=== PATIENT | male | born 1980 | race Hispanic/Latino ===

== ENCOUNTER 2019-10-01 13:30 | Inpatient (IN) | payer BC ==
[2019-10-01] VITALS (18 sets, daily range): BP systolic 83–127; BP diastolic 44–84
[~2019-10-01] VITALS: Ht 185.4 cm; Wt 52.9 kg
[2019-10-01] MEDS ORDERED: SODIUM CHLORIDE 0.9% 1000ML 1,000 ML IV STA ×3 (13:45→14:58)
[2019-10-01] MEDS ORDERED: CEFEPIME HCL 1 GM VIAL IV SCH (13:45)
[2019-10-01] MEDS ORDERED: CEFEPIME 1GM/NS 0.9% 50 ML 50 ML IV ONE (14:00)
[2019-10-01] MEDS ORDERED: ONDANSETRON HCL INJ 2MG/ML 2ML 2 MG/ML VIAL ONE (14:10)
[2019-10-01 14:15] LABS: ABG HCO3 2 mmol/L (23-28); ABG PCO2 9 mmHg (41-51); ABG PO2 186 mmHg (80-105)
[2019-10-01 14:27] LABS: BASOPHILS % 0.1 % (0.0-1.0); EOSINOPHILS % 0.1 % (0.0-6.0); HEMATOCRIT 43.1 % (38.2-49.6); HEMOGLOBIN 13.8 g/dL (14.0-18.0); LYMPHOCYTES # (AUTO) 2.8 (1.0-3.2); LYMPHOCYTES % 8.9 % (18.0-39.1); MEAN CORPUSCULAR HEMOGLOBIN 31.2 pg (28-32); MEAN CORPUSCULAR VOLUME 97.3 fL (81-99); MONOCYTES # (AUTO) 1.4 (0.2-0.8); MONOCYTES % 4.4 % (4.4-11.3); NEUTROPHILS # (AUTO) 24.3 (2.1-6.9); NEUTROPHILS % 76.4 % (38.7-80.0); PLATELET COUNT 334 x10e3/uL (140-360); RED BLOOD COUNT 4.43 x10e6/uL (4.3-5.7); RED CELL DISTRIBUTION WIDTH 13.3 % (11.7-14.4)
[2019-10-01 14:52] LABS: ALANINE AMINOTRANSFERASE 14 IU/L (0-55); ALBUMIN 2.5 g/dL (3.5-5.0); ALBUMIN/GLOBULIN RATIO 0.7 (0.8-2.0); ALKALINE PHOSPHATASE 108 IU/L (40-150); BLOOD UREA NITROGEN 61 mg/dL (7-26); BUN/CREATININE RATIO 21 (6-25); CALCIUM 8.4 mg/dL (8.4-10.2); CHLORIDE 82 mmol/L (98-107); CREATININE, SERUM 2.94 mg/dL (0.72-1.25); EST GLOMERULAR FILTRATION RATE 24 ML/MIN (60-); POTASSIUM 4.7 mmol/L (3.5-5.1)
[2019-10-01 14:59] LABS: ANION GAP 32.7 mmol/L (8-16)
[2019-10-01 15:01] LABS: CARBON DIOXIDE < 5 mmol/L (22-29); SODIUM 115 mmol/L (136-145)
[2019-10-01 15:08] LABS: GLUCOSE 902 mg/dL (74-118)
[2019-10-01] MEDS: DEXTROSE 5%/0.45% SOD CHL 1,000 ML IV SCH (15:10)
--- NOTE | 2019-10-01 15:10 | Diagnostic Imaging Report ---
EXAMINATION: CHEST SINGLE (PORTABLE) INDICATION: Sepsis COMPARISON: None FINDINGS: LINES/TUBES:None LUNGS:The lungs are well-inflated. No focal consolidation or pulmonary edema. PLEURA:No pleural effusion or pneumothorax. MEDIASTINUM:The cardiomediastinal silhouette appears normal in size and shape. BONES/SOFT TISSUES:No acute osseous injury. ABDOMEN:No free air under the diaphragm. IMPRESSION: No focal pneumonia or pulmonary edema. Signed by: Lakeshia Vasquez MD on 10/01/2019 3:06 PM
--- NOTE | 2019-10-01 15:13 | Diagnostic Imaging Report ---
Examination: CT BRAIN WO CONTRAST History:Altered mental status. Delirium. Comparison studies:None Technique: Axial images were obtained from the skull base to the vertex. Coronal and sagittal images reconstructed from the axial data. Dose modulation, iterative reconstruction, and/or weight based adjustment of the mA/kV was utilized to reduce the radiation dose to as low as reasonably achievable. Intravenous contrast: None Findings: Scalp: No abnormalities. Bones: No fractures, blastic or lytic lesions. Brain sulci: Appropriate for age. Ventricles: Normal in size and configuration. No hydrocephalus. Extra-axial space: No abnormalities. Parenchyma: No abnormal densities. No masses, hemorrhage, or acute or chronic cortical based vascular insults.. Sellar/suprasellar region: No abnormalities. Craniocervical junction: Patent foramen magnum. No Chiari one malformation. Incidental findings: Mild inflammatory mucosal thickening along the alveolar recess of the left maxillary sinus. Impression: No acute intracranial abnormalities. Signed by: Dr. Kaitlyn Cannon M.D. on 10/01/2019 3:10 PM
[2019-10-01] MEDS: INSULIN REGULAR, HUMAN 3ML VL 100 UNIT in SODIUM CHLORIDE 0.9% 100 ML 100 ML IV SCH ×2 (15:14)
[2019-10-01] MEDS ORDERED: INSULIN REGULAR, HUMAN 3ML VL 100 UNIT in SODIUM CHLORIDE 0.9% 100 ML IV SCH ×4 (15:15→20:15)
[2019-10-01] MEDS ORDERED: MAGNESIUM SULF 1GRAM/DEXTROSE 100 ML IV PRN (15:15)
[2019-10-01 15:27] LABS: BILIRUBIN,URINE NEGATIVE (NEGATIVE); CLARITY,URINE CLEAR (CLEAR); COLOR,URINE YELLOW (YELLOW); LEUKOCYTE ESTERASE ,URINE NEGATIVE (NEGATIVE); NITRITE,URINE NEGATIVE (NEGATIVE); PROTEIN,URINE DIPSTICK TRACE (NEGATIVE); URINE UROBILINOGEN 0.2 mg/dL (0.2 - 1)
[2019-10-01 15:29] LABS: KETONES,URINE 1+ (NEGATIVE)
[2019-10-01 15:32] LABS: AMPHETAMINES SCREEN,URINE NEGATIVE (NEGATIVE); BENZODIAZEPINES SCREEN,URINE NEGATIVE (NEGATIVE); PHENCYCLIDINE SCREEN,URINE NEGATIVE (NEGATIVE)
--- OUTSIDE RECORDS SUMMARY | 2019-10-01 15:37 | XMS REPORT ---
Author Author [facility] Address Unknown Phone Unavailable Care Team Providers Care Assembler Unit Name Role Phone ROXANNE CONRAD Unavailable Unavailable Problems This patient has no known problems. Allergies, Adverse Reactions, Alerts This patient has no known allergies or adverse reactions. Medications This patient has no known medications. Results Test Description Test Time Test Comments Text Results Atomic Results Result Comments CT BRAIN WO 2019-10-01 15:09:00 [place] [address] Patient Name: APRIL KRISHNAMURTHY MR #: [id number] : 1980 Age/Sex: 39/M Req #: [id number] Adm Physician: Ordered by: ROXANNE CONRAD DO Report #: [id number] Location: ER Room/Bed: Procedure: [id number] CT/CT BRAIN WO Exam Date: Exam Time: REPORT STATUS: Signed Examination: CT BRAIN WO CONTRAST History:Altered mental status. Delirium. Comparison studies:None Technique: Axial images were obtained from the skull base to the vertex. Coronal and sagittal images reconstructed from the axial data. Dose modulation, iterative reconstruction, and/or weight based adjustment of the mA/kV was utilized to reduce the radiation dose to as low as reasonably achievable. Intravenous contrast: None Findings: Scal p: No abnormalities. Bones: No fractures, blastic or lytic lesions. Brain sulci: Appropriate for age. Ventricles: Normal in size and configuration. No hydrocephalus. Extra-axial space: No abnormalities. Parenchyma: No abnormal densities. No masses, hemorrhage, or acute or chronic cortical based vascular insults.. Sellar/suprasellar region: No abnormalities. Craniocervical junction: Patent foramen magnum. No Chiari one malformation. Incidental findings: Mild inflammatory mucosal thickening along the alveolar recess of the left maxillary sinus. Impression: No acute intracranial abnormalities. Signed by: Dr. Kaitlyn Cannon M.D. on 10/01/2019 3:10 PM Dictated By: KAITLYN NICHOLS MD 09 Transcribed By: ALJEANDRO on 10/01/191509 COPY TO: ROXANNE CONRAD DO CHEST SINGLE (PORTABLE) 2019-10-01 15:06:00 [place] [address] Patient Name: APRIL KRISHNAMURTHY JR MR #: [id number] : 1980 Age/Sex: 39/M Req #: [id number] Adm Physician: Ordered by: ROXANNE CONRAD DO Report #: [id number] Location: ER Room/Bed: Procedure: [id number] DX/CHEST SINGLE (PORTABLE) Exam Date: 10/01/19 Exam Time: 1400 REPORT STATUS: Signed EXAMINATION: CHEST SINGLE (PORTABLE) IND ICATION: Sepsis COMPARISON: None FINDINGS: LINES/TUBES:None LUNGS:The lungs are well-inflated. No focal consolidation or pulmonary edema. PLEURA:No pleural effusion or pneumothorax. MEDIASTINUM:The cardiomediastinal silhouette appears normal in size and shape. BONES/SOFT TISSUES:No acute osseous injury. ABDOMEN:No free air under the diaphragm. IMPRESSION: No focal pneumonia or pulmonary edema. Signed by: Jose Serrato MD on 10/01/2019 3:06 PM Dictated By: JOSE SERRATO MD 1501 Transcribed By: ALEJANDRO on 10/01/19 2892 COPY TO: ROXANNE CONRAD,
[2019-10-01 15:39] LABS: RBC,URINE 0-5 /HPF (0-5)
[2019-10-01 15:40] LABS: AMORPHOUS SEDIMENT,URINE MODERATE (FEW)
[2019-10-01] MEDS ORDERED: SODIUM BICARBONATE 8.4% 50 ML VIAL IV STA (16:00)
[2019-10-01 16:47] LABS: BLOOD UREA NITROGEN 59 mg/dL (7-26); BUN/CREATININE RATIO 25 (6-25); CHLORIDE 93 mmol/L (98-107); CREATININE, SERUM 2.35 mg/dL (0.72-1.25); EST GLOMERULAR FILTRATION RATE 31 ML/MIN (60-); POTASSIUM 4.1 mmol/L (3.5-5.1); SODIUM 121 mmol/L (136-145)
[2019-10-01 16:49] LABS: ANION GAP 27.1 mmol/L (8-16)
[2019-10-01 16:50] LABS: CARBON DIOXIDE < 5 mmol/L (22-29)
[2019-10-01] MEDS ORDERED: SODIUM BICARBONATE 8.4% SYRING 50 ML ONE (16:50)
[2019-10-01 16:51] LABS: ABG HCO3 2 mmol/L (23-28); ABG PCO2 14 mmHg (41-51); ABG PH 6.83 (7.31-7.41); ABG PO2 109 mmHg (80-105)
[2019-10-01 17:14] LABS: ANISOCYTOSIS SLIGHT; BAND NEUTROPHILS % (MANUAL) 12 %; EOSINOPHILS % (MANUAL) 1 % (0-7); LYMPHOCYTES % (MANUAL) 6 % (19-48); METAMYELOCYTES % (MANUAL) 5 % (0-0); MONOCYTES % (MANUAL) 5 % (3.4-9.0); MYELOCYTES % (MANUAL) 6 % (0-0); NEUTROPHILS % (MANUAL) 65 % (40-74); PLATELET ESTIMATE ADEQUATE; PLATELET MORPHOLOGY COMMENT NORMAL; TOXIC GRANULATION MODERATE
[2019-10-01] MEDS ORDERED: VANCOMYCIN 1GM/NS 250 ML 250 ML IV ONE (17:15)
[2019-10-01 17:21] LABS: POIKILOCYTOSIS SLIGHT
[2019-10-01] MEDS ORDERED: ACETAMINOPHEN 325 MG TAB PO PRN (17:30)
[2019-10-01] MEDS ORDERED: ONDANSETRON HCL INJ 2MG/ML 2ML 2 MG/ML VIAL IV PRN (17:30)
[2019-10-01] MEDS ORDERED: HYDRALAZINE HCL 20 MG/ML VIAL IV PRN (17:30)
[2019-10-01] MEDS: SODIUM CHLORIDE 0.9% 1000ML 1,000 ML IV SCH ×3 (18:16→23:26)
--- NOTE | 2019-10-01 18:22 | Diagnostic Imaging Report ---
Examination: Single AP view of the chest. COMPARISON: None. INDICATION: Line placement DISCUSSION: Lines/tubes: Right-sided IJ catheter with tip over the SVC. Lungs: The lungs are well inflated and clear. No pneumonia or pulmonary edema. Pleura: No pleural effusion or pneumothorax. Heart and mediastinum: The heart and the mediastinum are unremarkable. Bones and soft tissues: No acute bony abnormalities. IMPRESSION: 1. No acute cardiopulmonary abnormalities. Signed by: Dr. Doron Lucas M.D. on 10/01/2019 6:18 PM
[2019-10-01] MEDS: PIPER-TAZ 3.375 GM 50 ML IV SCH (18:23)
[2019-10-01] MEDS ORDERED: INFLUENZA VIRUS VAC SPLIT INJ 0.5 ML SYR IM SCH (18:48)
--- NOTE | 2019-10-01 19:49 | NUR ---
patient admitted to icu at 1600 room 193. pt temp low, bp low. pt slurring with difficulty understanding patient. bg=hi on glucometer time checked. dr. patrick monge at bedside and aware of patient status and plan of care. pt asking pcg to be partner Tyree Early.
[2019-10-01 20:26] LABS: BASOPHILS % 0.1 % (0.0-1.0); HEMATOCRIT 37.3 % (38.2-49.6); HEMOGLOBIN 12.6 g/dL (14.0-18.0); LYMPHOCYTES # (AUTO) 1.2 (1.0-3.2); LYMPHOCYTES % 5.4 % (18.0-39.1); MEAN CORPUSCULAR HEMOGLOBIN 30.7 pg (28-32); MEAN CORPUSCULAR HGB CONC 33.8 g/dL (31-35); MEAN CORPUSCULAR VOLUME 90.8 fL (81-99); MONOCYTES % 4.4 % (4.4-11.3); NEUTROPHILS # (AUTO) 17.8 (2.1-6.9); NEUTROPHILS % 81.3 % (38.7-80.0); PLATELET COUNT 212 x10e3/uL (140-360); RED BLOOD COUNT 4.11 x10e6/uL (4.3-5.7)
[2019-10-01 20:47] LABS: BLOOD UREA NITROGEN 55 mg/dL (7-26); BUN/CREATININE RATIO 27 (6-25); CALCIUM 7.1 mg/dL (8.4-10.2); CHLORIDE 103 mmol/L (98-107); CREATININE, SERUM 2.06 mg/dL (0.72-1.25); EST GLOMERULAR FILTRATION RATE 36 ML/MIN (60-); POTASSIUM 3.3 mmol/L (3.5-5.1); SODIUM 130 mmol/L (136-145)
[2019-10-01 20:50] LABS: ANION GAP 25.3 mmol/L (8-16); CARBON DIOXIDE < 5 mmol/L (22-29)
[2019-10-01 20:51] LABS: GLUCOSE 411 mg/dL (74-118)
--- NOTE | 2019-10-01 20:59 | NUR ---
Spoke with Yolanda (Dr. Owens's answering service) at 2036 regarding new consult. Spoke with Dr. Clinton at 2099 regarding new consult. stated he will see patient tomorrow.
[2019-10-01] MEDS: POTASSIUM CHLORIDE 20MEQ/100ML 100 ML IV PRN (22:06)
--- NOTE | 2019-10-01 23:25 | Consultation ---
DATE OF CONSULTATION: Pulmonary Critical Care Consultation. CHIEF COMPLAINT: Delirium, acidosis and hyperglycemia. REFERRING PHYSICIAN: Brandt Abad MD HISTORY OF PRESENT ILLNESS: The patient is a 39-year-old man. He has a history of HIV. He apparently did have a well controlled CD4 count and viral load. He was on medications but may not have been taking them recently. He also has diabetes and has been on insulin for the past year and a half. Over this past several days, he has not been taking his insulin. He has diarrhea. He has been more confused and agitated. He subsequently came to the ER. Upon arrival, he was found to have a pH of 6.9 with a serum bicarb of 2 and a CO2 of 9. He also had a sodium 115 and anion gap of 33. His glucose was 902. He was given at 3 L of intravenous fluid and started on an insulin drip. He was bell cultured. PAST MEDICAL HISTORY: 1. Diabetes as noted above. 2. HIV. PAST SURGICAL HISTORY: Noncontributory. SOCIAL HISTORY: The patient is not actively drinking or smoking. He has no abdominal pain. He may be using some illicit substances. REVIEW OF SYSTEMS: The patient is afebrile. There is no headache. He has no neck pain. He has no chest pain. He has some dyspnea. He has some diarrhea but no abdominal pain. He has no nausea or vomiting. He does have some diarrhea. PHYSICAL EXAMINATION: VITAL SIGNS: The patient is afebrile. The blood pressure is 91/65 and the pulse is 63. HEENT: Shows no facial swelling or erythema. CARDIAC: Reveals regular rate and rhythm with normal S1, S2. There are no murmurs or rubs heard. LUNGS: Auscultation of lungs reveals clear breath sounds bilaterally. There is no wheezing. ABDOMEN: Soft, nontender. There is no rebound or guarding. EXTREMITIES: Show no leg edema or calf tenderness. There is no cyanosis, clubbing. SKIN: Shows no rashes. NEUROLOGICAL: Shows no focal abnormalities. IMPRESSION: 1. Diabetic ketoacidosis. 2. Leukocytosis and possible infection. 3. Human immunodeficiency virus. 4. Hyponatremia. 5. Hypokalemia. PLAN: 1. The patient will continue to receive intravenous fluid. 2. Continue insulin drip and monitor electrolytes. 3. Bell culture patient. 4. Stool cultures. 5. Antibiotics and infectious Disease consultation. MD JACOB Daniel/ANGELICA /[id number]
[2019-10-02] VITALS (31 sets, daily range): BP systolic 110–137; BP diastolic 69–96
[2019-10-02] MEDS: DEXTROSE 5%/0.45% SOD CHL 1,000 ML IV SCH ×3 (00:10→23:45)
--- NOTE | 2019-10-02 00:25 | Operative Report ---
DATE OF PROCEDURE: SURGEON: Yasir Marcelino MD PREOPERATIVE DIAGNOSES: 1. Central line placement under ultrasound guidance. 2. Hyponatremia. 3. Dehydration. POSTOPERATIVE DIAGNOSES: 1. Central line placement under ultrasound guidance. 2. Hyponatremia. 3. Dehydration. ANESTHESIA: 1% lidocaine for local anesthesia. CONSENT: Consent was obtained from the patient's significant other and the durable power of real estate associate attorney for [facility]. PROCEDURE IN DETAIL: The patient was placed in a supine position. An ultrasound machine was used to locate the right internal jugular vein. His right lateral neck was then prepped sterilely with chlorhexidine. 1% lidocaine was used to anesthetize the area between the heads of the sternocleidomastoid and over the insertion site. A 16-gauge needle was then inserted into the right internal jugular vein under direct visualization. A wire was placed through the needle. A dilator was then used and a triple-lumen catheter was placed over the wire by the Seldinger technique. All the ports flushed. COMPLICATIONS: None. ESTIMATED BLOOD LOSS: None. Yasir Marcelino MD [facility]/MODL /[id number]
[2019-10-02 01:19] LABS: ANION GAP 17.2 mmol/L (8-16); CREATININE, SERUM 1.59 mg/dL (0.72-1.25); POTASSIUM 3.2 mmol/L (3.5-5.1)
[2019-10-02] MEDS: PIPER-TAZ 3.375 GM 50 ML IV SCH ×4 (01:22→17:26)
[2019-10-02] MEDS: SODIUM CHLORIDE 0.9% 1000ML 1,000 ML IV SCH ×6 (01:22→23:10)
[2019-10-02 01:24] LABS: CALCIUM 6.9 mg/dL (8.4-10.2)
--- NOTE | 2019-10-02 01:41 | NUR ---
Notified Dr. Clinton of critical calcium level. said "it is fine" and no new orders received. stated "do not call unless calcium is less than 6."
[2019-10-02] MEDS: POTASSIUM CHLORIDE 20MEQ/100ML 100 ML IV PRN ×3 (01:50→14:45)
[2019-10-02 05:28] LABS: BASOPHILS % 0.1 % (0.0-1.0); HEMATOCRIT 32.4 % (38.2-49.6); HEMOGLOBIN 11.4 g/dL (14.0-18.0); LYMPHOCYTES # (AUTO) 0.6 (1.0-3.2); LYMPHOCYTES % 3.3 % (18.0-39.1); MEAN CORPUSCULAR HEMOGLOBIN 30.5 pg (28-32); MEAN CORPUSCULAR HGB CONC 35.2 g/dL (31-35); MEAN CORPUSCULAR VOLUME 86.6 fL (81-99); MONOCYTES # (AUTO) 1.3 (0.2-0.8); MONOCYTES % 7.3 % (4.4-11.3); NEUTROPHILS # (AUTO) 14.4 (2.1-6.9); NEUTROPHILS % 83.5 % (38.7-80.0); PLATELET COUNT 208 x10e3/uL (140-360); RED BLOOD COUNT 3.74 x10e6/uL (4.3-5.7); RED CELL DISTRIBUTION WIDTH 12.5 % (11.7-14.4)
[2019-10-02 05:47] LABS: ALBUMIN 1.7 g/dL (3.5-5.0); ANION GAP 12.4 mmol/L (8-16); BILIRUBIN,DIRECT 0.1 mg/dL (0.0-0.5); CALCIUM 7.1 mg/dL (8.4-10.2); CREATININE, SERUM 1.49 mg/dL (0.72-1.25); POTASSIUM 3.4 mmol/L (3.5-5.1)
[2019-10-02] MEDS ORDERED: MAGNESIUM SULF 1GRAM/DEXTROSE 100 ML IV ONE (06:30)
[2019-10-02] MEDS ORDERED: CALCIUM GLUCONATE 10% INJ 9.3 MEQ in SODIUM CHLORIDE 0.9% 100 ML 100 ML IV ONE (06:45)
[2019-10-02] MEDS: FAMOTIDINE 20 MG TAB PO SCH ×2 (07:30→17:26)
--- NOTE | 2019-10-02 08:47 | NUR ---
PT LETHARGIC, UNABLE TO DO DPA
[2019-10-02 09:07] LABS: ANION GAP 10.1 mmol/L (8-16); BLOOD UREA NITROGEN 38 mg/dL (7-26); BUN/CREATININE RATIO 29 (6-25); CARBON DIOXIDE 15 mmol/L (22-29); CHLORIDE 110 mmol/L (98-107); EST GLOMERULAR FILTRATION RATE > 60 ML/MIN (60-); GLUCOSE 139 mg/dL (74-118); POTASSIUM 3.1 mmol/L (3.5-5.1); SODIUM 132 mmol/L (136-145)
[2019-10-02 09:14] LABS: MONOCYTES % (MANUAL) 6 % (3.4-9.0); PLATELET ESTIMATE ADEQUATE; PLATELET MORPHOLOGY COMMENT NORMAL; RBC MORPHOLOGY COMMENT NORMAL
[2019-10-02 09:15] LABS: LYMPHOCYTES % (MANUAL) 3 % (19-48); NEUTROPHILS % (MANUAL) 91 % (40-74)
--- NOTE | 2019-10-02 09:41 | NUR ---
NOTIFIED MD REGARDING PHOS LEVEL, NEW ORDERS RECEIVED AND ENTERED
[2019-10-02] MEDS ORDERED: POTASSIUM PHOSPHATE 30 MM in SODIUM CHLORIDE 0.9% 250ML 250 ML IV ONE (09:45)
--- NOTE | 2019-10-02 11:37 | NUR ---
Nutrition Intervention Note RD Recommendation(s) for Physician: Advance diet as tolerated to a regular diet to promote Po intake Plan of Care: RD following, monitoring for tolerance and adequacy Nutrition reason for involvement: Nutrition Risk Trigger - BMI 15.5 RD Assessment 10/02 Initial encounter with patient and partner. Pt was only able to provide a limited nutrition Hx; partner gave most of the nutrition Hx. Diet: Hx: Pt is lactose intolerant. No known food allergies. 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 Pt is able to cook and feed himself, but just does not feel like preparing anything to eat. Pt usually eats sporadically and prepares canned foods like ravioli or bologna sandwiches. Pt has commercial beverages at home, but has limited acceptance of them and refuses to drink them. Pt is more sedentary and has not been ambulating as much. Pt states that he's non- compliant with HIV meds or insulin. Fourteen years ago pt weighed 190# and within the last 2 years had a UBW of 155 pounds. Physical activity and function: Pt is able to feed himself. Pt is sedentary at this time. Nutrition - focused physical findings: Pt is dentate, Denies any difficulty chewing or swallowing, nor has any N,V or D. Involuntary wt loss, loss of lean body mass, loss of functional mobility,prominent clavicle, acromion process, ribs, some temporal wasting. Pt was too tired to continue with nutrition - focused physical exam. Central Line has been placed Principal Problems/Diagnoses: AIDS, DKA PMH: HIV, T2DM GI:soft nontender Skin:intact skin Labs: (10/02/2019) Na 132, K 3.1, Cl 110, Bun/Cr 38/1.38, glucose 139 Meds: (10/02/19) MAR reviewed and Pt on an insulin drip, IV fluids KCL/D5 1/2 NS Ht: 73in. Wt:117.38lbs BMI:15.5kg/M2 IBW:lbs Malnutrition Evaluation (10/02/2019) T The patient meets criteria for unspecified SEVERE protein-calorie malnutrition. Energy intake: <50% of estimated energy requirements for >1 month Weight loss: >10% in 6 months (Chronic) Fat loss: Severe Muscle loss: Severe Supporting Evidence: Fluid accumulation:none Functional Status measurably reduced Nutrition Prescription (Diet Order): Clear liquid diet Estimated Nutritional Needs: 1600 - 1867calories/day ( 30-35kcal/kg/BW 53-106g protein/day ( 1-2g pro/kg/BW Diet Adequacy: Meeting fluid needs, Not meeting calorie needs, Not meeting protein needs Diet Education Needs Assessment: Diet education not indicated, patient on temporary/transition diet. Nutrition Care Level: High Nutrition Diagnosis: Malnutrition related to chronic illness as evidenced by loss of lean body mass and loss of subcutaneous fat. Goal: Patient will meet 75-100% of estimated needs by follow up Progress: Not Progressing Interventions: modified diet,Composition, Rate, Route, IVF, Prescription medications Monitoring/Evaluation: Total energy intake, Total protein intake, IVF, Prescription medication, Modified diet, Weight change goals Signed: Jovi Alvarado RD, HERMELINDA, [facility] Addendum: 10/02/19 at 1242 by Jovi LANIER IBW: 184lbs
[2019-10-02] MEDS ORDERED: CHOLESTYRAMINE 4 GM PACKET PO NR (12:00)
--- NOTE | 2019-10-02 12:30 | NUR ---
informed dr monge, blood sugar 78, orders received to decrease insulin drip to 4 units/hr
[2019-10-02 12:57] LABS: ANION GAP 10.4 mmol/L (8-16); BLOOD UREA NITROGEN 32 mg/dL (7-26); BUN/CREATININE RATIO 29 (6-25); CARBON DIOXIDE 15 mmol/L (22-29); CHLORIDE 110 mmol/L (98-107); CREATININE, SERUM 1.09 mg/dL (0.72-1.25); EST GLOMERULAR FILTRATION RATE > 60 ML/MIN (60-); GLUCOSE 80 mg/dL (74-118); MAGNESIUM 1.9 MG/DL (1.3-2.1); POTASSIUM 3.4 mmol/L (3.5-5.1); SODIUM 132 mmol/L (136-145)
[2019-10-02 13:04] LABS: CALCIUM 6.9 mg/dL (8.4-10.2)
--- NOTE | 2019-10-02 14:18 | Progress Note ---
DATE: Pulmonary Critical Care Progress Note SUBJECTIVE: The patient has been on IV fluids and insulin drip overnight. He is more awake. His electrolytes have improved as his blood sugar. He still has some abdominal pain and some diarrhea. PHYSICAL EXAMINATION: VITAL SIGNS: The patient is afebrile. The blood pressure is 135/82 and the saturation is 99%. The pulse is 81. HEENT: Shows no facial swelling or erythema. CARDIAC: Reveals regular rate and rhythm with normal S1 and S2. There are no murmurs or rubs heard. LUNGS: Auscultation of lungs shows clear breath sounds bilaterally. There is no wheezing. ABDOMEN: Soft, nontender. There is no rebound or guarding. EXTREMITIES: There is no leg edema. IMPRESSION: 1. Diabetic ketoacidosis. 2. Leukocytosis. 3. Human immunodeficiency virus. 4. Hyponatremia. 5. Hypokalemia. PLAN: 1. Continue to monitor electrolytes. 2. Continue IV fluids along with insulin drip. 3. Restart anti-retroviral medications. 4. Abdominal pelvic CT scan scheduled. Yasir Marcelino MD [facility]/MODL /[id number]
--- NOTE | 2019-10-02 14:18 | Consultation ---
DATE OF CONSULTATION: 10/02/2019 Renal Consultation REASON FOR CONSULTATION: Acute kidney injury and acidosis. HISTORY OF PRESENT ILLNESS: A 39-year-old male with a history of diabetes and hypertension, who was brought to [facility] for altered mental status. The patient is a poor historian and lethargic, and history is taken from him as well as medical record. The patient apparently has developed some diarrhea and was not taking his insulin or his HIV medications. He became more confused, agitated, and was brought by his partner to the emergency room. The patient was found to have severe metabolic acidosis, blood glucose of 902, was started on insulin drip, IV fluids for DKA, and Nephrology consultation was called. REVIEW OF SYSTEMS: Unable to obtain, as the patient is lethargic. PAST MEDICAL HISTORY: 1. Diabetes. 2. HIV. PAST SURGICAL HISTORY: None. SOCIAL HISTORY: No tobacco. No alcohol. Questionable use of recreational drugs. FAMILY HISTORY: No family history of kidney disease, although not reliable. ALLERGIES: NO KNOWN DRUG ALLERGIES. CURRENT MEDICATIONS: See list includes Zosyn, D5 half NS at 100, and insulin drip. PHYSICAL EXAMINATION: VITAL SIGNS: Blood pressure 131/73, pulse 78, respiratory rate 16, and temperature 98.7. GENERAL: No apparent distress. Ill-appearing. HEENT: Oropharynx clear with dry mucosa. Temporal wasting. No scleral icterus. NECK: Supple. No elevation in jugular venous pressure. Right IJ catheter in place. CHEST: Decreased breath sounds at bases anteriorly bilaterally. CARDIOVASCULAR: Regular rhythm. No murmurs or rubs. ABDOMEN: Soft. Positive bowel sounds. No tenderness. No rebound. EXTREMITIES: No edema. No clubbing. No cyanosis. SKIN: Warm. LABORATORY DATA: White count 17.19, hemoglobin 9.4, hematocrit 32.4, and platelets 208. Sodium 130, was 115 when he came in, potassium 3.4, chloride 107, CO2 14, anion gap 12.4, BUN 44, creatinine 1.49, was 2.94 on admission, glucose 166, calcium 7.1, and albumin 1.7. Urine clear, moderate amorphous sediment. No wbc's. Urine tox screen negative. ABG on admission was pH 6.9 with pCO2 of 9, and a bicarb of 2. ASSESSMENT AND PLAN: 1. Acute kidney injury secondary to volume depletion due to diabetic ketoacidosis. Continue with aggressive IV fluids. Kidney function is improving. 2. Hyponatremia secondary to hyperglycemia. His initial sodium of 115, corrected for glucose of 902 was 128. Continue with current fluids. 3. Anion gap acidosis secondary to diabetic ketoacidosis. Continue with diabetic ketoacidosis protocol. 4. Hypokalemia, correct per protocol. 5. Hypocalcemia, normal when corrected for low albumin. 6. Human immunodeficiency virus. We will need to resume his medications. 7. Hypermagnesemia, improving with IV fluids due to acute kidney injury. 8. Leukocytosis. Continue antibiotics with cultures pending. MD RASHEL Luong/MODL /[id number]
[2019-10-02] MEDS: INSULIN REGULAR, HUMAN 3ML VL 100 UNIT in SODIUM CHLORIDE 0.9% 100 ML 100 ML IV SCH ×2 (15:13)
--- NOTE | 2019-10-02 17:34 | Consultation ---
DATE OF CONSULTATION: REASON FOR CONSULTATION: AIDS, HIV, abdominal pain. HISTORY OF PRESENT ILLNESS: This patient, who is a 39-year-old male with history of HIV for several years. Apparently, he does take his medication. He tells me he was never diagnosed with AIDS, but he has been diagnosed with HIV. He has come in with 8 days of abdominal pain, not feeling well, fever, chills. He came to emergency room. In the emergency room, he had a pH of 6.9, bicarb of 2, CO2 of 9, sodium 115, anion gap 33, glucose 902. He was started on IV fluids and started on insulin drip. The patient was admitted. He is complaining of abdominal pain and not feeling well in general. Since he came here his white count was 31,000 came down to 17.1, hemoglobin was 13, came down to 11. Platelet of 208. The differential shows 65% neutrophils, went up to 91, lymphocyte was 6. His sodium is 132 today, potassium 3.1, creatinine 1.30. His liver enzyme; AST 14, ALT of 9. His blood cultures still pending. His urine culture is still pending. MEDICATIONS: He is currently on Zosyn, potassium supplement, magnesium supplement, Pepcid. The patient had a chest x-ray, showed no focal pneumonia. PHYSICAL EXAMINATION: GENERAL: He is currently alert, oriented, does not seem to be in acute distress with vital stable. VITAL SIGNS: Temperature 98.7, heart rate of 78, respiration 15. The patient had no fever since admission. HEENT: Normocephalic, not icteric. NECK: Supple. No JVD. No lymphadenopathy. No thyromegaly. CHEST: Clear bilateral. HEART: S1, S2. No S3, S4, or murmur. ABDOMEN: Soft. He had diffuse discomfort. EXTREMITIES: No edema. SKIN: No rash. IMPRESSION: 1. Sepsis on admission, source unclear, concerned about intraabdominal process. 2. Human immunodeficiency virus. Continue his medication once he is stable. 3. Nausea, vomiting, abdominal pain. We will get a CT of abdomen and pelvis and get amylase, lipase. Agree with IV fluid. 4. Diabetic ketoacidosis could explain the problem, concerned about underlying history of sepsis or infection. 5. Hyperlipidemia, hypokalemia. 6. Continue with supportive care. We will follow with you. Thank you for asking me to see this patient. MD DELANEY Malik/MODJacobo /[id number]
[2019-10-02] MEDS ORDERED: SODIUM CHLORIDE 0.9% 50ML 50 ML ONE (17:36)
[2019-10-02] MEDS ORDERED: IOPAMIDOL 370 MG/ML 200 ML INFUS..BTL INJ ONE (17:36)
[2019-10-02] MEDS ORDERED: LIPITOR20 MG PO (17:45)
--- NOTE | 2019-10-02 17:47 | Diagnostic Imaging Report ---
EXAM: CT Abdomen and Pelvis WITH contrast INDICATION: Abdominal pain. Leukocytosis. Diarrhea. COMPARISON: None. TECHNIQUE: Abdomen and pelvis were scanned utilizing a multidetector helical scanner from the lung base to the pubic symphysis after administration of IV contrast. Coronal and sagittal reformations were obtained. Routine protocol was performed. Scan was performed when during portal venous phase. IV CONTRAST: 100 cc Isovue-300 ORAL CONTRAST: Water RADIATION DOSE: Total DLP: 212.30 mGy*cm Estimated effective dose: (DLP x 0.015 x size factor) mSv COMPLICATIONS: None FINDINGS: LINES and TUBES: None. LOWER THORAX: Unremarkable HEPATOBILIARY: No focal hepatic lesions. No biliary ductal dilation. GALLBLADDER: No radio-opaque stones or sludge. No wall thickening. SPLEEN: No splenomegaly. PANCREAS: No focal masses or ductal dilatation. ADRENALS: No adrenal nodules KIDNEYS/URETERS: Kidneys enhance symmetrically. No hydronephrosis. No cystic or solid mass lesions. No stones. GI TRACT: Evaluation limited due to the lack of contrast. There is diffuse mild nodular wall thickening of the colon and rectum, associated mild fat stranding suggestive of pancolitis. No abnormal distention, wall thickening, or evidence of bowel obstruction. Appendix is normal. PELVIC ORGANS/BLADDER: Keyes catheter within the urinary bladder which also contains a moderate volume of gas. Mild diffuse wall thickening of the urinary bladder. LYMPH NODES: No lymphadenopathy. VESSELS: Unremarkable. PERITONEUM / RETROPERITONEUM: No free air or fluid. BONES: Unremarkable. SOFT TISSUES: Unremarkable. IMPRESSION: 1. Mild pancolitis, either infectious or inflammatory in etiology. Pseudomembranous colitis within the differential diagnosis. 2. Mild diffuse wall thickening of the urinary bladder may be related to underdistention, however, correlate for mild cystitis. Signed by: Dr. Yaniv Maza M.D. on 10/02/2019 5:44 PM
[2019-10-02 17:52] LABS: BLOOD UREA NITROGEN 25 mg/dL (7-26); BUN/CREATININE RATIO 27 (6-25); CARBON DIOXIDE 15 mmol/L (22-29); CHLORIDE 109 mmol/L (98-107); CREATININE, SERUM 0.94 mg/dL (0.72-1.25); EST GLOMERULAR FILTRATION RATE > 60 ML/MIN (60-); GLUCOSE 110 mg/dL (74-118); SODIUM 130 mmol/L (136-145)
[2019-10-02 18:30] LABS: CALCIUM 6.5 mg/dL (8.4-10.2)
[2019-10-02] MEDS: POTASSIUM CHLORIDE 20MEQ/100ML 200 ML IV PRN (18:38)
[2019-10-02 21:32] LABS: ANION GAP 9.2 mmol/L (8-16); BLOOD UREA NITROGEN 22 mg/dL (7-26); BUN/CREATININE RATIO 24 (6-25); CARBON DIOXIDE 16 mmol/L (22-29); CHLORIDE 112 mmol/L (98-107); CREATININE, SERUM 0.93 mg/dL (0.72-1.25); EST GLOMERULAR FILTRATION RATE > 60 ML/MIN (60-); GLUCOSE 79 mg/dL (74-118); POTASSIUM 3.2 mmol/L (3.5-5.1); SODIUM 134 mmol/L (136-145)
[2019-10-02 22:01] LABS: CALCIUM 6.8 mg/dL (8.4-10.2)
[2019-10-03] VITALS (24 sets, daily range): BP systolic 104–139; BP diastolic 60–95
[2019-10-03] MEDS: PIPER-TAZ 3.375 GM 50 ML IV SCH ×2 (00:35→06:30)
[2019-10-03 01:16] LABS: ANION GAP 10.9 mmol/L (8-16); BLOOD UREA NITROGEN 18 mg/dL (7-26); BUN/CREATININE RATIO 21 (6-25); CARBON DIOXIDE 16 mmol/L (22-29); CHLORIDE 110 mmol/L (98-107); CREATININE, SERUM 0.87 mg/dL (0.72-1.25); EST GLOMERULAR FILTRATION RATE > 60 ML/MIN (60-); GLUCOSE 83 mg/dL (74-118); MAGNESIUM 1.8 MG/DL (1.3-2.1); SODIUM 134 mmol/L (136-145)
[2019-10-03 01:26] LABS: POTASSIUM 2.9 mmol/L (3.5-5.1)
[2019-10-03 01:27] LABS: CALCIUM 6.7 mg/dL (8.4-10.2)
[2019-10-03] MEDS: POTASSIUM CHLORIDE 20MEQ/100ML 200 ML IV PRN ×2 (01:28→06:30)
[2019-10-03] MEDS: INSULIN REGULAR, HUMAN 3ML VL 100 UNIT in SODIUM CHLORIDE 0.9% 100 ML 100 ML IV SCH ×4 (01:43→06:30)
[2019-10-03 02:55] LABS: AMYLASE 60 U/L (25-125); LIPASE 66 U/L (8-78)
[2019-10-03 05:37] LABS: BASOPHILS % 0.3 % (0.0-1.0); EOSINOPHILS % 0.1 % (0.0-6.0); HEMATOCRIT 26.8 % (38.2-49.6); HEMOGLOBIN 9.7 g/dL (14.0-18.0); LYMPHOCYTES # (AUTO) 2.1 (1.0-3.2); LYMPHOCYTES % 19.2 % (18.0-39.1); MEAN CORPUSCULAR HEMOGLOBIN 30.5 pg (28-32); MEAN CORPUSCULAR HGB CONC 36.2 g/dL (31-35); MEAN CORPUSCULAR VOLUME 84.3 fL (81-99); MONOCYTES # (AUTO) 0.9 (0.2-0.8); MONOCYTES % 8.1 % (4.4-11.3); NEUTROPHILS # (AUTO) 7.3 (2.1-6.9); PLATELET COUNT 149 x10e3/uL (140-360); RED BLOOD COUNT 3.18 x10e6/uL (4.3-5.7); RED CELL DISTRIBUTION WIDTH 12.5 % (11.7-14.4)
[2019-10-03 05:55] LABS: BLOOD UREA NITROGEN 16 mg/dL (7-26); BUN/CREATININE RATIO 19 (6-25); CARBON DIOXIDE 17 mmol/L (22-29); CHLORIDE 110 mmol/L (98-107); CREATININE, SERUM 0.86 mg/dL (0.72-1.25); EST GLOMERULAR FILTRATION RATE > 60 ML/MIN (60-); GLUCOSE 67 mg/dL (74-118); MAGNESIUM 1.8 MG/DL (1.3-2.1); SODIUM 133 mmol/L (136-145)
[2019-10-03 05:58] LABS: PHOSPHORUS < 0.7 MG/DL (2.3-4.7)
[2019-10-03 06:01] LABS: CALCIUM 6.7 mg/dL (8.4-10.2)
--- NOTE | 2019-10-03 06:11 | NUR ---
Spoke with Christian NEAL regarding blood sugars in the 80s for most of the night in spite of increasing IVF per DKA protocol. Blood sugar now 67. Christian NEAL ordered to decrease insulin gtt to 2 un/hr and increase IVF an additional 25 mL/hr. Christian NEAL OK'd jaime d/c per pt request.
[2019-10-03] MEDS ORDERED: POTASSIUM CHLORIDE 20 MEQ TAB CR PO STA (06:43)
[2019-10-03 06:47] LABS: CALCIUM IONIZED 1.1 mmol/L (1.09-1.30)
[2019-10-03] MEDS ORDERED: CHOLESTYRAMINE 4 GM PACKET PO PRN (07:00)
[2019-10-03 07:17] LABS: LYMPHOCYTES % (MANUAL) 21 % (19-48); MONOCYTES % (MANUAL) 9 % (3.4-9.0); NEUTROPHILS % (MANUAL) 70 % (40-74)
[2019-10-03 07:20] LABS: HYPOCHROMASIA SLIG; PLATELET ESTIMATE SLIGHTLY DECREASED; POLYCHROMASIA FEW; RBC MORPHOLOGY COMMENT NORMAL
--- NOTE | 2019-10-03 07:27 | NUR ---
Yudy Patel BUSINESS MANAGEMENT SPECIALIST notified of low blood sugars and current insulin gtt/IVF rates. BUSINESS MANAGEMENT SPECIALIST states it is okay to continue with until protocol indicates d/c of drip.
[2019-10-03] MEDS: FAMOTIDINE 20 MG TAB PO SCH ×2 (07:30→16:27)
[2019-10-03] MEDS ORDERED: SODIUM CHLORIDE 0.9% 1000ML 1,000 ML ONE ×2 (09:01→16:26)
[2019-10-03] MEDS ORDERED: LOPERAMIDE HCL 2 MG CAP PO PRN (11:00)
[2019-10-03] MEDS: CEFTRIAXONE SOD 2 GM/NS 100 ML 100 ML IV SCH (11:21)
--- NOTE | 2019-10-03 12:42 | Progress Note ---
DATE: Pulmonary Critical Care Progress Note SUBJECTIVE: The patient still has some diarrhea. He remains on an insulin drip at 2 units an hour. He is afebrile. PHYSICAL EXAMINATION: VITAL SIGNS: Stable. HEENT: Shows no facial swelling or erythema. CARDIAC: Reveals a regular rate and rhythm with normal S1 and S2. There are no murmurs or rubs. LUNGS: Auscultation of lungs shows clear breath sounds bilaterally. There is no wheezing. ABDOMEN: Soft and nontender. There is no rebound or guarding. EXTREMITIES: Shows no leg edema or calf tenderness. IMPRESSION: 1. Diabetic ketoacidosis. 2. Pancolitis. 3. Hyponatremia. 4. History of human immunodeficiency virus. PLAN: 1. Continue IV fluids and insulin. 2. Continue to monitor electrolytes and blood counts. 3. Discuss diarrhea and antibiotics with Infectious Disease. 4. The patient should restart anti-retroviral therapy. Yasir Marcelino MD [facility]/MODL /[id number]
[2019-10-03 13:01] LABS: MAGNESIUM 1.7 MG/DL (1.3-2.1)
[2019-10-03 13:06] LABS: PHOSPHORUS < 0.7 MG/DL (2.3-4.7)
[2019-10-03] MEDS: METRONIDAZOLE 500MG/NS 100ML 100 ML IV SCH ×2 (13:23→21:32)
[2019-10-03 15:04] LABS: ANION GAP 11.2 mmol/L (8-16); BLOOD UREA NITROGEN 14 mg/dL (7-26); BUN/CREATININE RATIO 16 (6-25); CARBON DIOXIDE 18 mmol/L (22-29); CHLORIDE 107 mmol/L (98-107); CREATININE, SERUM 0.89 mg/dL (0.72-1.25); EST GLOMERULAR FILTRATION RATE > 60 ML/MIN (60-); GLUCOSE 267 mg/dL (74-118); POTASSIUM 3.2 mmol/L (3.5-5.1); SODIUM 133 mmol/L (136-145)
[2019-10-03 15:05] LABS: CALCIUM 6.7 mg/dL (8.4-10.2)
[2019-10-03 18:57] LABS: BLOOD UREA NITROGEN 14 mg/dL (7-26); BUN/CREATININE RATIO 16 (6-25); CARBON DIOXIDE 19 mmol/L (22-29); CHLORIDE 107 mmol/L (98-107); CREATININE, SERUM 0.85 mg/dL (0.72-1.25); EST GLOMERULAR FILTRATION RATE > 60 ML/MIN (60-); GLUCOSE 269 mg/dL (74-118); SODIUM 134 mmol/L (136-145)
[2019-10-03 18:59] LABS: CALCIUM 6.9 mg/dL (8.4-10.2)
[2019-10-03] MEDS: CALCIUM CARBONATE 500 MG CHEWABLE TABS PO PRN (22:41)
[2019-10-03 22:45] LABS: ANION GAP 10.2 mmol/L (8-16); BLOOD UREA NITROGEN 12 mg/dL (7-26); BUN/CREATININE RATIO 16 (6-25); CARBON DIOXIDE 19 mmol/L (22-29); CHLORIDE 108 mmol/L (98-107); CREATININE, SERUM 0.77 mg/dL (0.72-1.25); EST GLOMERULAR FILTRATION RATE > 60 ML/MIN (60-); GLUCOSE 201 mg/dL (74-118); POTASSIUM 3.2 mmol/L (3.5-5.1); SODIUM 134 mmol/L (136-145)
[2019-10-03 22:59] LABS: CALCIUM 6.8 mg/dL (8.4-10.2)
[2019-10-04] VITALS (21 sets, daily range): BP systolic 93–123; BP diastolic 59–79
[2019-10-04 03:10] LABS: ANION GAP 8.9 mmol/L (8-16); BLOOD UREA NITROGEN 10 mg/dL (7-26); BUN/CREATININE RATIO 14 (6-25); CARBON DIOXIDE 22 mmol/L (22-29); CHLORIDE 107 mmol/L (98-107); CREATININE, SERUM 0.71 mg/dL (0.72-1.25); EST GLOMERULAR FILTRATION RATE > 60 ML/MIN (60-); GLUCOSE 103 mg/dL (74-118); SODIUM 135 mmol/L (136-145)
[2019-10-04 03:15] LABS: POTASSIUM 2.9 mmol/L (3.5-5.1)
[2019-10-04] MEDS: POTASSIUM CHLORIDE 20MEQ/100ML 100 ML IV PRN ×2 (03:27→07:36)
[2019-10-04 03:59] LABS: EOSINOPHILS # (AUTO) 0.1 (0.0-0.4); EOSINOPHILS % 0.9 % (0.0-6.0); HEMATOCRIT 26.9 % (38.2-49.6); HEMOGLOBIN 9.8 g/dL (14.0-18.0); LYMPHOCYTES # (AUTO) 1.4 (1.0-3.2); LYMPHOCYTES % 24.7 % (18.0-39.1); MEAN CORPUSCULAR HEMOGLOBIN 30.7 pg (28-32); MEAN CORPUSCULAR HGB CONC 36.4 g/dL (31-35); MEAN CORPUSCULAR VOLUME 84.3 fL (81-99); MONOCYTES # (AUTO) 0.5 (0.2-0.8); MONOCYTES % 9.5 % (4.4-11.3); NEUTROPHILS # (AUTO) 3.6 (2.1-6.9); NEUTROPHILS % 63.5 % (38.7-80.0); PLATELET COUNT 126 x10e3/uL (140-360); RED BLOOD COUNT 3.19 x10e6/uL (4.3-5.7); RED CELL DISTRIBUTION WIDTH 13.2 % (11.7-14.4)
[2019-10-04 04:22] LABS: BLOOD UREA NITROGEN 10 mg/dL (7-26); BUN/CREATININE RATIO 14 (6-25); CARBON DIOXIDE 23 mmol/L (22-29); CHLORIDE 108 mmol/L (98-107); EST GLOMERULAR FILTRATION RATE > 60 ML/MIN (60-); GLUCOSE 120 mg/dL (74-118); MAGNESIUM 1.7 MG/DL (1.3-2.1); SODIUM 137 mmol/L (136-145)
[2019-10-04] MEDS: METRONIDAZOLE 500MG/NS 100ML 100 ML IV SCH ×3 (05:07→22:10)
[2019-10-04 05:50] LABS: ANION GAP 8.2 mmol/L (8-16); BLOOD UREA NITROGEN 9 mg/dL (7-26); BUN/CREATININE RATIO 13 (6-25); CALCIUM 7.1 mg/dL (8.4-10.2); CARBON DIOXIDE 24 mmol/L (22-29); CHLORIDE 107 mmol/L (98-107); EST GLOMERULAR FILTRATION RATE > 60 ML/MIN (60-); GLUCOSE 111 mg/dL (74-118); MAGNESIUM 1.7 MG/DL (1.3-2.1); POTASSIUM 3.2 mmol/L (3.5-5.1); SODIUM 136 mmol/L (136-145)
[2019-10-04 05:51] LABS: PHOSPHORUS < 0.7 MG/DL (2.3-4.7)
[2019-10-04] MEDS ORDERED: SODIUM CHLORIDE 0.9% 1000ML 1,000 ML ONE (05:53)
[2019-10-04] MEDS ORDERED: INSULIN GLARGINE 100 UNITS/ML VIAL SQ ONE (06:30)
[2019-10-04] MEDS: SODIUM CHLORIDE 0.9% 1000ML 1,000 ML IV SCH ×2 (06:42→10:47)
[2019-10-04] MEDS: FAMOTIDINE 20 MG TAB PO SCH ×2 (07:30→16:23)
[2019-10-04] MEDS: CEFTRIAXONE SOD 2 GM/NS 100 ML 100 ML IV SCH (09:39)
[2019-10-04] MEDS: CALCIUM CARBONATE 500 MG CHEWABLE TABS PO PRN (09:39)
[2019-10-04] MEDS: SUCRALFATE 1 GM TAB PO SCH ×3 (10:48→20:59)
[2019-10-04] MEDS ORDERED: INSULIN REGULAR, HUMAN 100 UNIT/1 ML 3ML VIAL ONE (11:45)
[2019-10-04] MEDS ORDERED: DEXTROSE 50% SYRINGE 50 ML IV PRN (12:00)
[2019-10-04] MEDS: INSULIN REGULAR, HUMAN 100 UNIT/1 ML 3ML VIAL SQ SCH ×2 (12:01→21:01)
[2019-10-04 14:42] LABS: ANION GAP 8.7 mmol/L (8-16); BLOOD UREA NITROGEN 8 mg/dL (7-26); BUN/CREATININE RATIO 10 (6-25); CALCIUM 7.2 mg/dL (8.4-10.2); CARBON DIOXIDE 26 mmol/L (22-29); CHLORIDE 103 mmol/L (98-107); CREATININE, SERUM 0.77 mg/dL (0.72-1.25); EST GLOMERULAR FILTRATION RATE > 60 ML/MIN (60-); GLUCOSE 171 mg/dL (74-118); POTASSIUM 3.7 mmol/L (3.5-5.1); SODIUM 134 mmol/L (136-145)
--- NOTE | 2019-10-04 14:57 | NUR ---
Transfer to [facility]. Zulema Patel NP, and Dr Jacobo Marcelino agree to transfer to [facility].
--- NOTE | 2019-10-04 15:57 | Progress Note ---
DATE: Pulmonary and Critical Care Progress Note SUBJECTIVE: The patient feels better. He is off the insulin drip. He is on subcu insulin. He has less diarrhea. PHYSICAL EXAMINATION: VITAL SIGNS: The patient is afebrile. The vital signs are stable. HEENT: Shows no facial swelling or erythema. CARDIAC: Reveals regular rate and rhythm with normal S1 and S2. LUNGS: Auscultation of lungs shows clear breath sounds bilaterally. There is no wheeze. ABDOMEN: Soft, nontender. There is no rebound or guarding. EXTREMITIES: Show no leg edema or calf tenderness. IMPRESSION: 1. Diabetic ketoacidosis. 2. Colitis. PLAN: 1. Continue hydration. 2. Continue to monitor blood sugars on subcu insulin. 3. Restart anti-retroviral therapy. Yasir Marcelino MD [facility] /[id number]
[2019-10-04 22:37] LABS: ANION GAP 8.5 mmol/L (8-16); BLOOD UREA NITROGEN 10 mg/dL (7-26); BUN/CREATININE RATIO 12 (6-25); CALCIUM 7.1 mg/dL (8.4-10.2); CARBON DIOXIDE 26 mmol/L (22-29); CHLORIDE 102 mmol/L (98-107); CREATININE, SERUM 0.82 mg/dL (0.72-1.25); EST GLOMERULAR FILTRATION RATE > 60 ML/MIN (60-); GLUCOSE 224 mg/dL (74-118); POTASSIUM 3.5 mmol/L (3.5-5.1); SODIUM 133 mmol/L (136-145)
[2019-10-05] VITALS (8 sets, daily range): BP systolic 105–131; BP diastolic 58–80
--- NOTE | 2019-10-05 01:15 | NUR ---
Report to Angeles JEAN on IMCU.
--- NOTE | 2019-10-05 01:45 | NUR ---
Transferred per bed to 187 with all belongings.
--- NOTE | 2019-10-05 01:45 | NUR ---
Received patient from ICU via bed. Patient is awake, alert and able to make needs known. Vital signs are stable. Patient oriented to new room, and call may. He was instructed to call for assistance as needed and verbalized understanding. Bed in lowest position, locked, bed alarm on and call may within reach.
[2019-10-05 05:14] LABS: BASOPHILS % 0.2 % (0.0-1.0); EOSINOPHILS % 0.5 % (0.0-6.0); HEMATOCRIT 28.3 % (38.2-49.6); LYMPHOCYTES # (AUTO) 1.2 (1.0-3.2); LYMPHOCYTES % 18.8 % (18.0-39.1); MEAN CORPUSCULAR HEMOGLOBIN 30.3 pg (28-32); MEAN CORPUSCULAR HGB CONC 35.3 g/dL (31-35); MEAN CORPUSCULAR VOLUME 85.8 fL (81-99); MONOCYTES # (AUTO) 0.6 (0.2-0.8); MONOCYTES % 10.1 % (4.4-11.3); NEUTROPHILS # (AUTO) 4.4 (2.1-6.9); NEUTROPHILS % 69.4 % (38.7-80.0); PLATELET COUNT 139 x10e3/uL (140-360); RED CELL DISTRIBUTION WIDTH 13.3 % (11.7-14.4)
[2019-10-05] MEDS: METRONIDAZOLE 500MG/NS 100ML 100 ML IV SCH ×2 (05:21→14:39)
[2019-10-05 05:37] LABS: ANION GAP 9.4 mmol/L (8-16); BLOOD UREA NITROGEN 8 mg/dL (7-26); BUN/CREATININE RATIO 11 (6-25); CALCIUM 7.3 mg/dL (8.4-10.2); CARBON DIOXIDE 29 mmol/L (22-29); CHLORIDE 104 mmol/L (98-107); CREATININE, SERUM 0.73 mg/dL (0.72-1.25); EST GLOMERULAR FILTRATION RATE > 60 ML/MIN (60-); GLUCOSE 153 mg/dL (74-118); POTASSIUM 3.4 mmol/L (3.5-5.1); SODIUM 139 mmol/L (136-145)
--- NOTE | 2019-10-05 06:56 | NUR ---
Walking rounds and report given to day nurse. Patient without any complaints voiced.
[2019-10-05] MEDS: INSULIN REGULAR, HUMAN 100 UNIT/1 ML 3ML VIAL SQ SCH ×4 (07:37→21:00)
[2019-10-05] MEDS: FAMOTIDINE 20 MG TAB PO SCH ×2 (07:38→16:47)
[2019-10-05] MEDS: SUCRALFATE 1 GM TAB PO SCH ×4 (07:38→21:00)
[2019-10-05] MEDS: CEFTRIAXONE SOD 2 GM/NS 100 ML 100 ML IV SCH (11:01)
--- NOTE | 2019-10-05 13:00 | NUR ---
Palliative care declined by primary physician's nurse practitioner Cathleen, when she was asked for the service.
--- NOTE | 2019-10-05 14:45 | Progress Note ---
DATE: SUBJECTIVE: Mr. Livingston is doing better, still weak. No new complaints. He still does not have his HIV medication, but he is getting it. Since admission, there is no fever. But overall as mentioned above, he is feeling better except that the weakness. PHYSICAL EXAMINATION: GENERAL: He is currently alert and oriented. Does not seem to be in acute distress. VITAL SIGNS: Stable, currently afebrile. HEENT: Normocephalic. Not icteric. NECK: Supple. No JVD. No lymphadenopathy. No thyromegaly. CHEST: Clear bilateral. HEART: S1 and S2. No S3, S4, or murmur. ABDOMEN: Soft. Bowel sounds present. No tenderness. EXTREMITIES: No edema. LABORATORY DATA: His blood cultures are negative. Urine cultures are negative. His stool workup is still pending. His white count is 6.26 and hemoglobin of 10.0. Electrolytes recently were within normal limits and there is no fever since admission. IMPRESSION: 1. Sepsis, on admission, resolved. 2. Human immunodeficiency virus. Continue his anti-retroviral medication. 3. Pancolitis, better. 4. Also, there is fungal infection noted to perirectal area. He is currently on Rocephin and Flagyl, improving, concerned about a fungal infection. We will add oral Diflucan and local antihistamine. He has severe perirectal area erythema. 5. Debility, going for an LTAC. Discussed with Internal Medicine. We will follow with you. MD DELANEY Malik/ANGELICA /[id number]
--- NOTE | 2019-10-05 14:49 | NUR ---
CALLED INSURANCE TO SEE IF HAS SNF BENEFIT, MICHAELA STATES HE DOES. HE HAS A RUG RATE WHERE THEY WILL PAY 850 A DAY, HE HAS MET 250 DEDUCTIBLE, BUT NOT HIS 7500 OOP. HE WILL HAVE TO PAY 40% OF THE DAILY RATE WHICH IS 340.00 A DAY AND ANYTHING NOT COVERED. THE FACILITIES IN NETWORK ARE [facility], [facility], AND [facility]. WENT AND SPOKE WITH PT. HE WOULD PREFER TO NOT DO A SNF, HE STATES HE CANNOT AFFORD IT. SPOKE WITH POWER GENERATING PLANT OPERATOR AND DR FELIZ. PT IS ASKING IF HE CAN DO OUTPATIENT AT DR FELIZ OFFICE. GAVE ALL INFORMATION TO DR FELIZ, HE WILL SEE IF HE CAN GET IT APPROVED FOR OUTPATIENT THROUGH HIS OFFICE. LET CM KNOW PLAN AND WHAT HAS BEEN DONE.
--- NOTE | 2019-10-05 14:53 | NUR ---
PT STATES HE IS CURRENTLY LIVING IN OWN APARTMENT IN [place] THAT IS SHUTTING DOWN. HE STATES HE NEEDS TO GET HIS BELONGINGS OUT AND MOVE INTO HIS PARTNER HOME IN [facility], WHICH [facility]. PT WILL NOT QUALIFY FOR HOME HEALTH DUE TO NOT BEING HOME BOUND.
--- NOTE | 2019-10-05 15:00 | NUR ---
Right IJ TLC DC'd. Order to dc per Cathleen CONTINUOUS IMPROVEMENT COORDINATOR with Dr Abad. Pulled per policy. Dressed with gauze and transparent. No complications noted. IV to right forearm, tender with flush, was DC'd per policy, catheter tip intact, dressed with gauze and tape, no complications noted. IV to left ac non patent, DC'd per policy, catheter tip intact, dressed with gauze and tape, no complications noted. New iv start to left forearm, 20g, flushes well, no complications noted.
--- NOTE | 2019-10-05 15:50 | NUR ---
Nutrition Intervention Note RD Recommendation(s) for Physician: - Continue 1800 ADA - Recommend Glucerna Shake TID Pt meets criteria for severe protein calorie malnutrition Plan of Care: RD following, monitoring for tolerance and adequacy. Diet and ONS rec's. Nutrition reason for involvement: Follow up RD Assessment 10/05: Pt seen for follow up. Discussed during am rounds. Pt off insulin drip as of yesterday am, on 1800 ADA diet, and transferred to [facility]. Pt reports good appetite and good diet tolerance, reports 100% po intake and denies any GI distress. Pt reports 1 BM today, increased BMs 2/2 current medical conditions and colitis. Pt receptive to Glucerna Shakes TID. Pt with no questions or concerns at time of visit. Will continue to monitor. 10/02 Initial encounter with patient and partner. Pt was only able to provide a limited nutrition Hx; partner gave most of the nutrition Hx. Diet: Hx: Pt is lactose intolerant. No known food allergies. 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 Pt is able to cook and feed himself, but just does not feel like preparing anything to eat. Pt usually eats sporadically and prepares canned foods like ravioli or bologna sandwiches. Pt has commercial beverages at home, but has limited acceptance of them and refuses to drink them. Pt is more sedentary and has not been ambulating as much. Pt states that he's non- compliant with HIV meds or insulin. Fourteen years ago pt weighed 190# and within the last 2 years had a UBW of 155 pounds. Physical activity and function: Pt is able to feed himself. Pt is sedentary at this time. Nutrition - focused physical findings: Pt is dentate, Denies any difficulty chewing or swallowing, nor has any N,V or D. Involuntary wt loss, loss of lean body mass, loss of functional mobility,prominent clavicle, acromion process, ribs, some temporal wasting. Pt was too tired to continue with nutrition - focused physical exam. Central Line has been placed Principal Problems/Diagnoses: AIDS, DKA PMH: HIV, T2DM GI: LBM 10/05 x 1, 10/04 x 5- pt with colitis Skin: intact skin Labs: 10/05: Na 139, K 3.4, BUN 8, Cr 0.73, Gluc 153 Meds: abx, insulin, carafate, pepcid, questran, KCl IVPB, Mg Sulfate IVPB, kphos po, zofran Ht: 73in. Wt:117.38lbs BMI:15.5kg/M2 IBW: 184 lbs Malnutrition Evaluation (10/02/2019) The patient meets criteria for unspecified SEVERE protein-calorie malnutrition. Energy intake: <50% of estimated energy requirements for >1 month Weight loss: >10% in 6 months (Chronic) Fat loss: Severe Muscle loss: Severe Supporting Evidence: Fluid accumulation:none Functional Status measurably reduced Nutrition Prescription (Diet Order): 1800 ADA Estimated Nutritional Needs: 1600 - 1867calories/day ( 30-35kcal/kg/CBW) 53-106g protein/day ( 1-2g pro/kg/CBW) Diet Adequacy: Meeting fluid needs, meeting calorie needs, meeting protein needs Diet Education Needs Assessment: Diet education not indicated. Nutrition Care Level: High Nutrition Diagnosis: Malnutrition related to chronic illness as evidenced by loss of lean body mass and loss of subcutaneous fat. Goal: Patient will meet 75-100% of estimated needs by follow up Progress: progressing tolerance: tolerating po Interventions: modified diet, liquid supplement, Prescription medications Monitoring/Evaluation: Total energy intake, Total protein intake, Prescription medication, Modified diet, Weight change, liquid supplement Signed: Radha Payne RD, LD, [facility]
[2019-10-05] MEDS: FLUCONAZOLE 200 MG/100 ML 100 ML IV SCH (16:03)
[2019-10-05] MEDS: KETOCONAZOLE 2% CREAM/15 GM TUBE TOP SCH (16:47)
[2019-10-05] MEDS: PHOSPHORUS 250 MG TAB PO SCH (16:47)
[2019-10-05] MEDS ORDERED: HOME MEDICATION--PATIENTS OWN PO SCH ×2 (17:15)
[2019-10-05] MEDS ORDERED: POTASSIUM PHOSPHATE 30 MM in SODIUM CHLORIDE 0.9% 250ML 250 ML IV ONE (18:00)
--- NOTE | 2019-10-05 19:30 | NUR ---
Pt arrived to the unit as transfer from [facility] (Rm 187). Patient alert and oriented x3. No distress or discomfort noted. Ambulates with assistance prn (using walker). Call may within reach.
[2019-10-05] MEDS ORDERED: SODIUM CHLORIDE 0.9% 500ML 500 ML ONE (20:33)
[2019-10-05] MEDS ORDERED: SERTRALINE HCL 50 MG TAB PO SCH (21:45)
[2019-10-06] VITALS: BP 117/62
[2019-10-06] MEDS: METRONIDAZOLE 500MG/NS 100ML 100 ML IV SCH (00:30)
[2019-10-06 04:00] VITALS: BP 117/63
[2019-10-06 05:41] LABS: BASOPHILS % 0.3 % (0.0-1.0); EOSINOPHILS # (AUTO) 0.1 (0.0-0.4); EOSINOPHILS % 0.7 % (0.0-6.0); HEMATOCRIT 32.2 % (38.2-49.6); HEMOGLOBIN 10.9 g/dL (14.0-18.0); LYMPHOCYTES # (AUTO) 2.8 (1.0-3.2); LYMPHOCYTES % 25.7 % (18.0-39.1); MEAN CORPUSCULAR HGB CONC 33.9 g/dL (31-35); MEAN CORPUSCULAR VOLUME 88.7 fL (81-99); MONOCYTES # (AUTO) 1.2 (0.2-0.8); MONOCYTES % 10.7 % (4.4-11.3); NEUTROPHILS # (AUTO) 6.8 (2.1-6.9); NEUTROPHILS % 61.4 % (38.7-80.0); PLATELET COUNT 209 x10e3/uL (140-360); RED BLOOD COUNT 3.63 x10e6/uL (4.3-5.7); RED CELL DISTRIBUTION WIDTH 13.5 % (11.7-14.4)
[2019-10-06 06:03] LABS: BLOOD UREA NITROGEN 10 mg/dL (7-26); BUN/CREATININE RATIO 11 (6-25); CALCIUM 7.4 mg/dL (8.4-10.2); CARBON DIOXIDE 27 mmol/L (22-29); CHLORIDE 101 mmol/L (98-107); CREATININE, SERUM 0.91 mg/dL (0.72-1.25); EST GLOMERULAR FILTRATION RATE > 60 ML/MIN (60-); GLUCOSE 208 mg/dL (74-118); SODIUM 136 mmol/L (136-145)
[2019-10-06 06:15] LABS: PLATELET ESTIMATE ADEQUATE
[2019-10-06 06:17] LABS: PLATELET MORPHOLOGY COMMENT FEW LARGE; RBC MORPHOLOGY COMMENT NORMAL
--- NOTE | 2019-10-06 06:56 | NUR ---
BEDSIDE SHIFT REPORT RECEIVED FROM OFF GOING NURSE. PATIENT IS IN STABLE CONDITION. CALL LIGHT WITHIN REACH. BED IN THE LOWEST POSITION.
[2019-10-06 07:30] VITALS: BP 110/68
[2019-10-06] MEDS ORDERED: METRONIDAZOLE 500MG/NS 100ML 100 ML IV SCH (08:00)
[2019-10-06] MEDS: INSULIN REGULAR, HUMAN 100 UNIT/1 ML 3ML VIAL SQ SCH ×2 (08:30→12:08)
[2019-10-06] MEDS: SUCRALFATE 1 GM TAB PO SCH ×2 (08:36→11:54)
[2019-10-06] MEDS: FAMOTIDINE 20 MG TAB PO SCH (08:37)
[2019-10-06] MEDS: KETOCONAZOLE 2% CREAM/15 GM TUBE TOP SCH (08:38)
[2019-10-06] MEDS: PHOSPHORUS 250 MG TAB PO SCH ×2 (08:38→15:41)
[2019-10-06] MEDS: CEFTRIAXONE SOD 2 GM/NS 100 ML 100 ML IV SCH (09:40)
[2019-10-06 10:55] VITALS: BP 110/68
[2019-10-06 11:10] VITALS: BP 99/54
--- NOTE | 2019-10-06 11:57 | NUR ---
PROVIDED PT WITH RADHA WALKER PER ORDER, OBTAINED SIGNATURES AND FILED IN PACU. ALSO GAVE BLUE BOOK FOR ALL RESOURCES RELATED TO HIS DX FOR FOLLOW UP IN COMMUNITY.
[2019-10-06] MEDS ORDERED: CARAFATE1 GM PO (13:05)
[2019-10-06 15:37] VITALS: BP 102/57
[2019-10-06] MEDS: FLUCONAZOLE 200 MG/100 ML 100 ML IV SCH (15:41)
[2019-10-06] MEDS ORDERED: LAMIVUDINE PO SCH (17:00)
[2019-10-06] MEDS ORDERED: TIVICAY 50MG PO SCH (17:00)
[2019-10-06] MEDS ORDERED: ABACAVIR PO SCH (17:00)
--- NOTE | 2019-10-06 17:37 | NUR ---
RECEIVED DC ORDER FROM ÁNGEL SILVER. PATIENT IS IN STABLE CONDITION. IV LINE TO RIGHT AC DCD WITH TIP INTACT, PRESSURE APPLIED TO SITE, NO BLEEDING NOTED. DISCHARGE TEACHING PROVIDED, PATIENT VERBALIZED UNDERSTANDING. DISCHARGE FOLDER AND PRESCRIPTIONS ON HAND. ALL PERSONAL ITEMS ON HAND. PATIENT ACCOMPANIED TO PRIVATE AUTO VIA WHEELCHAIR BY STAFF.
--- NOTE | 2019-10-07 11:55 | Discharge Summary ---
CONSULTING PHYSICIAN: 1. Dr. Graciela Wright 2. Dr. Brady Clinton 3. Dr. Yasir Marcelino. PRIMARY CARE PHYSICIAN: Unknown. CHIEF COMPLAINT: Diabetic ketoacidosis, severe sepsis. HOSPITAL COURSE: This is a 39-year-old male with history of HIV for several years, type 2 diabetes, who was admitted with complaints of abdominal pain, fever, and chills. When he came to emergency room, lab review showed pH of 6.9, bicarb of 2, CO2 of 9, sodium of 115, anion gap of 33, and glucose of 902. He was placed on IV fluids and on insulin drip and admitted to ICU for the close monitoring. He was also evaluated by Infectious Disease, interior design instructor, and Pulmonary. The patient received IV antibiotics. He was on IV Rocephin, Flagyl, and IV diflucan. The patient currently has been stabilized and cleared for discharge by Infectious Disease to continue with Cipro and Flagyl p.o. for 10 days and Bactrim DS on Friday, Friday, and Friday for next 2 months. His vital signs includes temperature 98.7, heart rate 73, blood pressure 110/68, respiratory rate 19, oxygen saturation is 99%. His medication he reported, the patient is taking Lantus glargine 18 units daily and will be following up with research laboratory manager tomorrow at 10 a.m. He also will be taking Cipro and Flagyl and Bactrim DS at home. Labs from 10/06/2019, his WBC is 11, hemoglobin 10.9, hematocrit 32.2, platelets 209, sodium 136, potassium 4.0, chloride 101, CO2 of 27, BUN 10, and creatinine 0.91, and glucose is 208. PHYSICAL EXAMINATION: HEENT: Sclerae anicteric. NECK: Supple. CHEST: Clear to auscultation. CARDIAC: Regular rate rhythm with no murmurs. ABDOMEN: Soft and nontender. EXTREMITIES: No edema. SKIN: Dry. NEUROLOGIC: Cranial nerves are intact. PSYCHIATRIC: Normal mood and affect. DIAGNOSES: 1. Type II diabetes, uncontrolled. 2. Human immunodeficiency virus/acquired immunodeficiency syndrome. 3. Perirectal fungal infection, which he has been given antibiotics, flagyl, and Cipro and will be continuing to take Bactrim DS for next 2 months. DISPOSITION: The patient upon discharge is fair. He was offered penitentiary facility, but refused and wanting to go home. Sending home with home health and walker as per PT recommendations. FOLLOWUP: The patient will follow up with research laboratory manager this week and follow up with Infectious Disease and follow up with primary care physician. Dictated by Cathleen Odonnell NP MD RASHEL Ware/ANGELICA /[id number]
== END 2019-10-06 17:38 | disposition home or self-care (01) | DRG 974 ==
LOC: ER 13:30 → ERHOLD 15:10 → ICU 16:33 → IMCU 10-05 01:45 → MED/SURG3 10-05 19:03
PROVIDERS: ADMIT Internal Medicine; ATTEND Internal Medicine
PROC: 02HV33Z Insertion of Infusion Device into Superior Vena Cava, Percutaneous Approach (ICD-10-PCS; principal; 2019-10-01)
PROC: B548ZZA Ultrasonography of Superior Vena Cava, Guidance (ICD-10-PCS; 2019-10-01)
DX: A41.9 Sepsis, unspecified organism (principal); E11.10 Type 2 diabetes mellitus with ketoacidosis without coma; B20 Human immunodeficiency virus [HIV] disease; J96.00 Acute respiratory failure, unspecified whether with hypoxia or hypercapnia; N17.9 Acute kidney failure, unspecified; E87.1 Hypo-osmolality and hyponatremia; E23.0 Hypopituitarism; Z68.1 Body mass index [BMI] 19.9 or less, adult; B48.8 Other specified mycoses; A04.8 Other specified bacterial intestinal infections; R65.20 Severe sepsis without septic shock; E87.6 Hypokalemia; E83.41 Hypermagnesemia; K52.9 Noninfective gastroenteritis and colitis, unspecified; Z83.3 Family history of diabetes mellitus; Z80.9 Family history of malignant neoplasm, unspecified; Z82.3 Family history of stroke; E83.51 Hypocalcemia; R63.6 Underweight; Z79.4 Long term (current) use of insulin; E78.5 Hyperlipidemia, unspecified; K62.89 Other specified diseases of anus and rectum; R53.81 Other malaise
CPT/HCPCS: 36415; 36600; 51700; 70450; 71045; 74177; 80048; 80053; 80076; 80307; 81001; 82140; 82150; 82306; 82805; 82948; 83605; 83690; 83735; 84100; 85025; 86361; 87040; 87045; 87086; 87177; 87328; 87493; 93005; 96360; 96372; 99285; C1751; J0610; J0692; J0696; J1450; J1815; J1817; J2405; J2543; J3370; J3475; J3480; J7030; J7040; J7050; Q9967